=== PATIENT | female | born 1980 | race Caucasian/White ===

== ENCOUNTER 2025-01-21 07:01 | Emergency (ER) | payer BC, SELFPAY ==
[2025-01-21 07:04] VITALS: BP 132/82
[2025-01-21 10:17] LABS: Urine Character Clear (Clear)
--- NOTE | 2025-01-21 11:10 | ED.GENMED ---
History of Present Illness
General
Chief Complaint: Bowel Problem
Source: patient
Time Seen by Provider: 01/21/25 08:29
History of Present Illness
History of Present Illness:
Note:
CHIEF COMPLAINT(S)
Chronic constipation with acute exacerbation and difficulty in urinating.
HISTORY OF PRESENT ILLNESS
The patient is a 45-year-old female with a history of chronic constipation, presenting with a recent worsening of symptoms over the past few days. She reports a sensation of needing to have a bowel movement but being unable to do so, describing a
feeling of pressure in the rectum. The patient notes that she attempted to urinate in the morning but was only able to manage a trickle. She doesn�t regularly take stool softeners but occasionally uses fiber supplements like Metamucil and sometimes
stool softeners. The patient has been on iron supplements due to irregular periods and heavy bleeding, which resulted in fatigue. A hysterectomy was planned but postponed. She denies having blood in her stool but reports rectal pressure-related
pain. The patient inquires about the possibility of trying an enema to relieve her symptoms.
ALLERGIES
The patient denies any known allergies to medications.
REVIEW OF SYSTEMS
- Gastrointestinal: Chronic constipation with a recent inability to defecate, pressure in the rectum, bloating. No hematochezia.
- Urinary: Difficulty urinating, described as trickling.
PHYSICAL EXAM
General: Alert, no acute distress.
Abdomen: Tenderness noted, particularly when palpated.
Neck: Supple, trachea midline.
Eye, Ear, Nose, and Throat: Oral mucosa moist.
Cardiovascular: Normal peripheral perfusion, no edema.
Respiratory: Respirations are non-labored.
Musculoskeletal: Normal range of motion, normal strength.
Neurological: Alert and oriented to person, place, time, and situation, no focal neurological deficit observed.
Psychiatric: Cooperative, appropriate mood & affect.
PROBLEM LIST
- Acute constipation exacerbation
- Difficulty urinating
PLAN
- Attempt enema administration by nursing staff to relieve constipation, with instructions to hold the enema solution as long as possible for effectiveness.
- Consider manual disimpaction if the enema is unsuccessful.
- Discuss the importance of a daily regimen involving stool softeners or fiber supplements once acute symptoms are managed to prevent recurrence.
DIFFERENTIAL DIAGNOSIS
The Differential Diagnosis includes, in no particular order and is not limited to:
- Chronic constipation
- Irritable bowel syndrome
- Bowel obstruction
- Fecal impaction
- Neurogenic bladder
- Hypothyroidism
- Electrolyte imbalance (e.g., hypercalcemia)
- Pelvic floor dysfunction
- Medication-induced constipation (e.g., due to iron supplements)
- Gastrointestinal motility disorder
Disposition:
SUMMARY OF ENCOUNTER
The patient, a 45-year-old female, presented with symptoms of chronic constipation with an acute exacerbation, including difficulty passing stool and urinating. On examination, abdominal tenderness was noted. An enema was administered by the nursing
staff, resulting in significant symptom improvement. The patient reported feeling much better and was able to have a bowel movement.
DISPOSITION
Discharge.
PLAN
The patient was advised on the importance of establishing a daily regimen involving stool softeners or fiber supplements to prevent recurrence of symptoms.
PATIENT EDUCATION AND COUNSELING
Discussed the role of fiber supplements like psyllium (Metamucil) and regular stool softeners to maintain bowel regularity and prevent future episodes of constipation. The possibility of reintroducing or adjusting iron supplements due to her history
of heavy menstrual bleeding and fatigue was also evaluated.
FOLLOW-UP INSTRUCTIONS
The patient should follow up with her primary care physician to reassess the need for postponed hysterectomy and further evaluation of constipation management.
MEDICATION RECONCILIATION
The patient currently uses fiber supplements like psyllium occasionally and takes iron supplements for heavy menstrual periods.
MEDICAL DECISION MAKING
-Number and Complexity of Problems Addressed: Chronic conditions affecting care include chronic constipation, difficulty urinating, history of heavy menstrual bleeding requiring iron supplements.
-Data:
Category 1
Clinical data includes observations of the patients response to the administered enema.
-Discussion of management, tests, and recommendations with nursing staff concluded with successful discharge after symptom resolution.
DIAGNOSIS
- Chronic constipation (ICD-10: K59.00)
- Urinary difficulty not elsewhere classified (ICD-10: R39.14)
Past History
Past History
ED Past Surgical History: Other (Gastric sleeve bariatric surgery)
Social History
Personal:
Phy Exam
Physical Exam
Physical Exam:
.
Course
Orders/Labs/Results
Orders:
Orders
01/21/25 08:49
Enema- Treatment ONCE
Type: Milk of Molasses
01/21/25 09:03
Urinalysis Reflex To Culture Urgent
Date Specimen was Collected: 01/21/25
Time Specimen was Collected: 08:53
Vital Signs
Initial and Last Documented VS:
Initial Vital Signs
Temp Pulse Resp BP Pulse Ox
98.1 F 93 16 132/82 99
01/21/25 07:04 01/21/25 07:04 01/21/25 07:04 01/21/25 07:04 01/21/25 07:04
Last Documented Vital Signs
Temp Pulse Resp BP Pulse Ox
98.1 F 93 16 132/82 99
01/21/25 07:04 01/21/25 07:04 01/21/25 07:04 01/21/25 07:04 01/21/25 07:04
*Pulse Oximetry
SaO2: 99
Oxygen Mode of Delivery: Room air
Patient hypoxic: no
*Critical Care Note
Total Time (30-74mins, 75-104mins- exclusive of procedures): Not Applicable
ED Attending Note
-
Portions of this chart may have been created with voice recognition software.� Occasional wrong word or��sound alike� substitutions may have occurred due to the inherent limitations of voice recognition software.
Discharge Plan
Departure
Patient Disposition: Home (Routine Discharge)
Date of Disposition: 01/21/25
Time of Disposition: 11:11
Patient with high blood pressure during this ER visit?: No
Discharge Problem:
Constipation
Instructions: Constipation, Adult (DC)
Prescriptions:
No Action
oxycodone-acetaminophen 5 MG/325 MG tablet
1 tab PO Q4HPRN PRN (Reason: pain) Qty: 12 0RF
tamsulosin 0.4 MG capsule
0.4 mg PO DAILY Qty: 4 0RF
ondansetron 4 MG tablet,disintegrating
4 mg PO TIDPRN PRN (Reason: nausea/vomiting) Qty: 10 0RF
Referrals:
Spring Cosme CRNP [Family Provider, General]
Activity Restrictions/Additional Instructions:
Please use MiraLAX twice a day for the next 4 days and consider daily use as needed to ensure that you have bowel movements daily. Return immediately for abdominal pain, vomiting, worsening symptoms or any other concerns.
Interventions
Interventions:
*Risk Screen - Suicide Last Done: 01/21/25 07:04
*General Assessment Last Done: 01/21/25 09:51
*Neglect/Abuse Screening Last Done: 01/21/25 07:04
*ED- Fall Risk Assessment Last Done: 01/21/25 09:51
MU-Niqqtz-Jjujdgpnyc Assessment Last Done: 01/21/25 09:51
Discharge Date and Time
Print Language: ISRAELI
== END 2025-01-21 11:20 | disposition home or self-care (01) ==
LOC: EMR 07:01
PROVIDERS: EMERGENCY PHYSICIAN Emergency Medicine; FAMILY PHYSICIAN Nurse Practitioner Primary Care
DX: K59.09 Other constipation (principal); R39.198 Other difficulties with micturition; Z79.899 Other long term (current) drug therapy
CPT/HCPCS: 99283; 81003